=== PATIENT | female | born 1995 | race Caucasian/White ===

== ENCOUNTER 2017-02-10 17:26 | Emergency (ER) | payer BC ==
--- NOTE | 2017-02-10 19:18 | ED NURSING NOTES ---
Clinical Report - Nurses [facility] [address] [place] [address] 02/10/2017 17:28 Patient: HARRISON ZARATE TRIAGE Triage time 17:35. Chief Complaint: PAINFUL URINATION. --17:40 Sheriff Garza R.N. 17:35 02/10/17. BP: 129/71. HR: 96. RR: 18. O2 saturation: 97%. Temp: 98.1 F. Pain level now: 02/13. --17:40 Sheriff Garza R.N. Weight: 79.3 kg stated. Height/Length: 61 inches Per Patient. BMI: 33. --17:39 Sheriff Garza R.N. Medications None. --17:36 Sheriff Garza R.N. Allergies Sulfa Antibiotics. --17:36 Sheriff Garza R.N. History Arrived by private vehicle. Historian: patient. Onset. (1 weeks). ( Noted blood clots in urine twice today.). SURGERY HX: No history of previous surgery. SOCIAL HX: Smoker- current status unknown (Vape). Occasional alcohol use; consumes beer occasionally. History of drug use: marijuana. FALL RISK ASSESSMENT: Fall risk assessment completed. No fall risk identified. NUTRITIONAL RISK ASSESSMENT: The nutritional risk assessment revealed no deficiencies. FUNCTIONAL ASSESSMENT: Functional assessment: no impairments noted. LEARNING NEEDS ASSESSMENT: The learning needs assessment revealed no barriers. SKIN INTEGRITY ASSESSMENT: Skin integrity risk assessment completed. No skin integrity risk identified. --17:40 Sheriff Garza R.N. PROBLEMS: Kidney Infection. Lumbar Strain. UTI - Urinary Tract Infection. LNMP - Last Normal Menstrual Period. Immunizations. --17:39 Sheriff Garza R.N. PHYSICAL ASSESSMENT Ambulatory to room. GENERAL / NEURO / PSYCH: Alert. Oriented X 4. Appears in no acute distress. HEENT: Mucous membranes are pink. RESPIRATORY: Respirations not labored. CVS: Capillary refill less than 2 seconds. SKIN: Skin is warm and dry. --17:41 Sheriff Garza R.N. NURSING PROGRESS NOTES Head of bed elevated. Patient ID band checked for patient name and birthdate: patient confirmed. Instructions provided to collect clean catch urine. Clean catch urine collected with return of yellow-colored urine; sample sent to lab. Specimen labeled in the presence of the patient. Two patient identifiers checked. Call light placed in reach. Side rails up x 2. Bed placed in lowest position. Brakes of bed on. --17:41 Sheriff Garza R.N. DISPOSITION / DISCHARGE Condition at departure: stable. No learning barriers present. Discharge instructions provided and reviewed with the patient. Reviewed medication(s) side effects, precautions, dosing and course information. Prescription(s) given to the patient. Patient verbalized understanding. Written instructions provided in Dutch. The patient was discharged by the physician restaurant assistant manager. She was discharged home and accompanied by family. She left the Emergency Department ambulatory and via private vehicle. Family member driving. --19:24 Sheriff Garza R.N. Locked/Released at 02/10/2017 19:25 by Sheriff Garza R.N.
--- NOTE | 2017-02-10 19:18 | ED CLINICAL REPORT ---
Clinical Report - Physicians/Mid Levels [facility] [address] [place] [address] 02/10/2017 17:28 Patient: HARRISON ZARATE Time Seen: 17:34; initial patient contact, initial documentation, patient care assumed. Arrived- By private vehicle. Historian- patient. HISTORY OF PRESENT ILLNESS Chief Complaint: DYSURIA. hematuria. This started about 1 weeks ago and still present. The symptoms are described as moderate. Modifying factors- worsened by urination. Not relieved by anything. No abdominal pain, pelvic pain, vaginal pain, low back pain or flank pain. No missed period(s), irregular periods, abnormal bleeding, vaginal discharge or urinary frequency. No urgency of urination. The patient has had pain with urination. The patient has had mild hematuria. Sexually active. Does not use control measures. Denies current . Similar symptoms previously: None. Recent medical care: Not recently seen/assessed. REVIEW OF SYSTEMS No nausea, vomiting, diarrhea, fever or difficulty breathing. No chest pain. All systems otherwise negative, except as recorded above. PAST HISTORY See nurses notes. ( PROBLEMS: Kidney Infection. Lumbar Strain. UTI - Urinary Tract Infection. LNMP - Last Normal Menstrual Period. Immunizations. --17:39 Sheriff Kayla RRoc.). SOCIAL HISTORY Smoker- current status unknown (electronic cigarrette). No alcohol use or drug use. No recent travel. Is a local resident. FAMILY HISTORY Negative. ADDITIONAL NOTES The nursing notes have been reviewed with agreement regarding the chief complaint, HPI, ROS, PMH and patient medications and allergies. PHYSICAL EXAM Vital Signs: 02/10/2017 17:35 BP: 129/71. HR: 96. RR: 18. O2 saturation: 97%. Temp: 98.1 F. Pain level now: 6/10. Have been reviewed as normal and appear to be correct. Appearance: Alert. Oriented X3. No acute distress. HEENT: Normal external inspection. ENT: Pharynx normal. Neck: Neck supple. CVS: Heart sounds normal. Respiratory: No respiratory distress. Breath sounds normal. Chest nontender. Abdomen: Soft and nontender. Bowel sounds normal. No organomegaly. No mass. Back: Normal external inspection. Skin: Skin warm and dry. Normal skin color. No rash. Normal skin turgor. Extremities: Extremities nontender. No lower extremity edema. Neuro: Oriented X 3. Mood/affect normal. No motor deficit. No sensory deficit. LABS, X-RAYS, AND EKG Laboratory Tests: UA-Culture if indicated: (LESLI: 02/10/2017 17:35) ( MsgRcvd 02/10/2017 18:59) Final results Test Result Flag Units (Reference) URINE COLOR YELLOW URINE APPEARANCE CLEAR URINE GLUCOSE NEGATIVE (NEGATIVE) URINE BILIRUBIN NEGATIVE (NEGATIVE) URINE KETONE NEGATIVE (NEGATIVE) URINE SPECIFIC GRAVITY <= 1.005 L (1.010-1.030) URINE PH 6.0 (5.0-8.0) URINE PROTEIN NEGATIVE (NEGATIVE) URINE UROBILINOGEN 1.0 EU/dL (0.2-1.0) URINE NITRITE POSITIVE (NEGATIVE) URINE BLOOD 1+ (NEGATIVE) URINE LEUK ESTERASE POSITIVE (NEGATIVE) URINE RBC 1-3 rbc/hpf (0-1) URINE WBC 15-25 wbc/hpf (0-1) URINE EPITHELIAL CELLS 1-3 EPI/hpf (0-5) URINE BACTERIA FEW (1+) (NONE SEEN) URINE COMMENT CULTURE INDICATED URINE CULTURES ARE SET-UP BASED ON THE FOLLOWING CRITERIA:POSITIVE NITRITEPOSITIVE LEUKOCYTE ESTERASEGREATER THAN 10 WHITE BLOOD CELLSMODERATE (2+) OR GREATER BACTERIA . PROGRESS AND PROCEDURES Patient counseled in person regarding the patient's stable condition, test results and diagnosis. 19:15. Differential Diagnosis: Other possible considerations: uti, cystitis, pyelo, kidney stone. Above considerations are based on history, physical exam, reassessment and laboratory data. Differential diagnosis was discussed with patient. Disposition: Discharged home in good and unchanged condition (19:18). Condition: good and stable. CLINICAL IMPRESSION Acute urinary tract infection with cystitis and hematuria. No pyelonephritis. Not associated with indwelling catheter or obstruction. INSTRUCTIONS Drink plenty of fluids until better. Warnings: GENERAL WARNINGS: Return or contact your physician immediately if your condition worsens or changes unexpectedly, if not improving as expected, or if other problems arise. Specifically return if problem worsens. Prescription Medications: Cipro 500 mg: take 1 tab orally every 12 hours for 7 days. Dispense fourteen (14). No refills. Substitution is permissible. Follow-up: Follow up with your doctor in about three days even if well. Call for an appointment. Summary of care provided to patient. Understanding of the discharge instructions verbalized by patient. (Electronically signed by Coty Lee A.R.N.P. 02/10/2017 19:54)
--- NOTE | 2017-02-10 19:18 | ED ORDER SUMMARY ---
..... Patient: HARRISON ZARATE OrderSheet [facility] VisitID: [id number] [address] [place] [address] 21y, F Registration Date/Time: 02/10/2017 ORDER SHEET Weight: 79.3 kg (stated) Allergies: Sulfa Antibiotics GENERAL ORDERS: UA-Culture if indicated Urgent (18:32 02/10/2017 Varsha A.R.N.P.) (18:36 Yisel R.N.) MEDICATION ORDERS: IV FLUIDS: ORDER SHEET NOTES: [Electronically signed by Sheriff Chau Garza (19:25 02/10/2017)] [Electronically signed by Coty LeeR.N.PEder (19:54 02/10/2017)] [Electronically locked/signed by Sheriff Chau Garza (19:25 02/10/2017)]
--- NOTE | 2017-02-10 19:18 | ED NURSING NOTES ---
Clinical Report - Nurses [facility] [address] [place] [address] 02/10/2017 17:28 Patient: HARRISON ZARATE TRIAGE Triage time 17:35. Chief Complaint: PAINFUL URINATION. --17:40 Sheriff Garza R.N. 17:35 02/10/17. BP: 129/71. HR: 96. RR: 18. O2 saturation: 97%. Temp: 98.1 F. Pain level now: 02/13. --17:40 Sheriff Garza R.N. Weight: 79.3 kg stated. Height/Length: 61 inches Per Patient. BMI: 33. --17:39 Sheriff Garza R.N. Medications None. --17:36 Sheriff Garza R.N. Allergies Sulfa Antibiotics. --17:36 Sheriff Garza R.N. History Arrived by private vehicle. Historian: patient. Onset. (1 weeks). ( Noted blood clots in urine twice today.). SURGERY HX: No history of previous surgery. SOCIAL HX: Smoker- current status unknown (Vape). Occasional alcohol use; consumes beer occasionally. History of drug use: marijuana. FALL RISK ASSESSMENT: Fall risk assessment completed. No fall risk identified. NUTRITIONAL RISK ASSESSMENT: The nutritional risk assessment revealed no deficiencies. FUNCTIONAL ASSESSMENT: Functional assessment: no impairments noted. LEARNING NEEDS ASSESSMENT: The learning needs assessment revealed no barriers. SKIN INTEGRITY ASSESSMENT: Skin integrity risk assessment completed. No skin integrity risk identified. --17:40 Sheriff Garza R.N. PROBLEMS: Kidney Infection. Lumbar Strain. UTI - Urinary Tract Infection. LNMP - Last Normal Menstrual Period. Immunizations. --17:39 Sheriff Garza R.N. PHYSICAL ASSESSMENT Ambulatory to room. GENERAL / NEURO / PSYCH: Alert. Oriented X 4. Appears in no acute distress. HEENT: Mucous membranes are pink. RESPIRATORY: Respirations not labored. CVS: Capillary refill less than 2 seconds. SKIN: Skin is warm and dry. --17:41 Sheriff Garza R.N. NURSING PROGRESS NOTES Head of bed elevated. Patient ID band checked for patient name and birthdate: patient confirmed. Instructions provided to collect clean catch urine. Clean catch urine collected with return of yellow-colored urine; sample sent to lab. Specimen labeled in the presence of the patient. Two patient identifiers checked. Call light placed in reach. Side rails up x 2. Bed placed in lowest position. Brakes of bed on. --17:41 Sheriff Garza R.N. DISPOSITION / DISCHARGE Condition at departure: stable. No learning barriers present. Discharge instructions provided and reviewed with the patient. Reviewed medication(s) side effects, precautions, dosing and course information. Prescription(s) given to the patient. Patient verbalized understanding. Written instructions provided in Lithuanian. The patient was discharged by the physician assistant golf course superintendent. She was discharged home and accompanied by family. She left the Emergency Department ambulatory and via private vehicle. Family member driving. --19:24 Sheriff Garza R.N. Locked/Released at 02/10/2017 19:25 by Sheriff Garza R.N.
--- NOTE | 2017-02-10 19:18 | ED ORDER SUMMARY ---
..... Patient: HARRISON ZARATE OrderSheet [facility] VisitID: [id number] [address] [place] [address] 21y, F Registration Date/Time: 02/10/2017 ORDER SHEET Weight: 79.3 kg (stated) Allergies: Sulfa Antibiotics GENERAL ORDERS: UA-Culture if indicated Urgent (18:32 02/10/2017 Varsha A.R.N.P.) (18:36 Yisel R.N.) MEDICATION ORDERS: IV FLUIDS: ORDER SHEET NOTES: [Electronically signed by Sheriff Chau Garza (19:25 02/10/2017)] [Electronically signed by Coty LeeR.N.PEder (19:54 02/10/2017)] [Electronically locked/signed by Sheriff Chau Garza (19:25 02/10/2017)]
--- NOTE | 2017-02-10 19:54 | ED MAR SUMMARY ---
..... Medication Administration Record [facility] [address] [place], [place] [id number] Patient: HARRISON ZARATE Visit ID: [id number] 21y, F Weight: 79.3 kg Height/Length: 61 in BMI: 33 ALLERGIES: Sulfa Antibiotics
--- NOTE | 2017-02-10 19:54 | ED DISCHARGE INSTRUCTIONS ---
Patient: HARRISON ZARATE General Instructions [facility] VisitID: [id number] [place] [address] 21y, F Registration Date/Time: 02/10/2017 Acute urinary tract infection with cystitis and hematuria. No pyelonephritis. Not associated with indwelling catheter or obstruction. INSTRUCTIONS Drink plenty of fluids until better. Warnings: GENERAL WARNINGS: Return or contact your physician immediately if your condition worsens or changes unexpectedly, if not improving as expected, or if other problems arise. Specifically return if problem worsens. Prescription Medications: Cipro 500 mg: take 1 tab orally every 12 hours for 7 days. Dispense fourteen (14). No refills. Substitution is permissible. Follow-up: Follow up with your doctor in about three days even if well. Call for an appointment. Summary of care provided to patient. Understanding of the discharge instructions verbalized by patient. ADDITIONAL INFORMATION Bladder Infection,Female (Adult) A bladder infection ("cystitis" or "UTI") usually causes a constant urge to urinate and a burning when passing urine. Urine may be cloudy, smelly or dark. There may be pain in the lower abdomen. A bladder infection occurs when bacteria from the vaginal area enter the bladder opening (urethra). This can occur from sexual intercourse, wearing tight clothing, dehydration and other factors. Home Care: Drink lots of fluids (at least 6-8 glasses a day, unless you must restrict fluids for other medical reasons). This will force the medicine into your urinary system and flush the bacteria out of your body. Avoid sexual intercourse until your symptoms are gone. Avoid caffeine, alcohol and spicy foods. These can irritate the bladder. A bladder infection is treated with antibiotics. You may also be given Pyridium (generic = phenazopyridine) to reduce the burning sensation. This medicine will cause your urine to become a bright orange color. The orange urine may stain clothing. You may wear a pad or panty-liner to protect clothing. Preventing Future Infections: Always wipe from front to back after a bowel movement. Keep the genital area clean and dry. Drink plenty of fluids each day to avoid dehydration. Both sexual partners should wash before intercourse. Urinate right after intercourse to flush out the bladder. Wear cotton underwear and cotton-lined panty hose; avoid tight-fitting pants. If you are on control pills and are having frequent bladder infections, discuss with your doctor. Follow Up: Return to this facility or see your doctor if ALL symptoms are not gone after three days of treatment. Get Prompt Medical Attention if any of the following occur: Fever of 100.4F (38C) or higher, or as directed by your healthcare provider No improvement by the third day of treatment Increasing back or abdominal pain Repeated vomiting; unable to keep medicine down Weakness, dizziness or fainting Vaginal discharge Pain, redness or swelling in the labia (outer vaginal area) Blood In The Urine Blood in the urine ("hematuria") has many possible causes. If it occurs after an injury (such as a car accident or fall), it is most often a sign of bruising to the kidney or bladder. Common medical causes of blood in the urine include urinary tract infection, kidney stone, inflammation, tumors, or certain other diseases of the kidney or bladder. Menstruation can cause blood to appear in the urine sample, although it is not coming from the urinary tract. If only a trace amount of blood is present, it will show up on the urine test, even though the urine may be yellow and not pink or red. This may occur with any of the above conditions, as well as heavy exercise or high fever. In this case, your doctor may want to repeat the urine test on another day. This will show if the blood is still present. If so, then other tests can be done to find out the cause. Home Care: If your urine does not appear bloody (pink, brown or red) then you do not need to restrict your activity in any way. If you can see blood in your urine, rest and avoid heavy exertion until your next exam. Do not use aspirin or anti-inflammatory medicine like ibuprofen (Motrin, Advil) or naproxen (Naprosyn, Aleve). These thin the blood and may increase bleeding. Follow Up with your doctor or as advised by our staff. If you were injured and had blood in your urine, you should have a repeat urine test in 1-2 days. Contact your doctor or return to this facility for this test. [NOTE: A radiologist will review any X-rays that were taken. We will notify you of any new findings that may affect your care.] Get Prompt Medical Attention if any of the following occur: Bright red blood or blood clots in the urine (if a new symptom) Weakness, dizziness or fainting New groin, abdominal or back pain Fever of 100.4F (38C) or higher, or as directed by your healthcare provider Repeated vomiting Bleeding from nose, gums or easy bruising Ciprofloxacin Hydrochloride Oral tablet What is this medicine? CIPROFLOXACIN (sip bryan FLOX a sin) is a quinolone antibiotic. It is used to treat certain kinds of bacterial infections. It will not work for colds, flu, or other viral infections. How should I use this medicine? Take this medicine by mouth with a glass of water. Follow the directions on the prescription label. Take your medicine at regular intervals. Do not take your medicine more often than directed. Take all of your medicine as directed even if you think your are better. Do not skip doses or stop your medicine early. You can take this medicine with food or on an empty stomach. It can be taken with a meal that contains dairy or calcium, but do not take it alone with a dairy product, like milk or yogurt or calcium-fortified juice. A special MedGuide will be given to you by the pharmacist with each prescription and refill. Be sure to read this information carefully each time. Talk to your senior project accountant regarding the use of this medicine in children. Special care may be needed. What side effects may I notice from receiving this medicine? Side effects that you should report to your doctor or health director of career resources as soon as possible: - allergic reactions like skin rash, itching or hives, swelling of the face, lips, or tongue - breathing problems - confusion, nightmares or hallucinations - feeling faint or lightheaded, falls - irregular heartbeat - joint, muscle or tendon pain or swelling - pain or trouble passing urine -persistent headache with or without blurred vision - redness, blistering, peeling or loosening of the skin, including inside the mouth - seizure - unusual pain, numbness, tingling, or weakness Side effects that usually do not require medical attention (report to your doctor or health director of career resources if they continue or are bothersome): - diarrhea - nausea or stomach upset - white patches or sores in the mouth What may interact with this medicine? Do not take this medicine with any of the following medications: cisapride droperidol terfenadine tizanidine This medicine may also interact with the following medications: antacids caffeine cyclosporin didanosine (ddI) buffered tablets or powder medicines for diabetes medicines for inflammation like ibuprofen, naproxen methotrexate multivitamins omeprazole phenytoin probenecid sucralfate theophylline warfarin What if I miss a dose? If you miss a dose, take it as soon as you can. If it is almost time for your next dose, take only that dose. Do not take double or extra doses. Where should I keep my medicine? Keep out of the reach of children. Store at room temperature below 30 degrees C (86 degrees F). Keep container tightly closed. Throw away any unused medicine after the expiration date. What should I tell my health care provider before I take this medicine? They need to know if you have any of these conditions: -bone problems -cerebral disease -joint problems -irregular heartbeat -kidney disease -liver disease -myasthenia gravis -seizure disorder -tendon problems -an unusual or allergic reaction to ciprofloxacin, other antibiotics or medicines, foods, dyes, or preservatives - or trying to get -breast-feeding What should I watch for while using this medicine? Tell your doctor or health director of career resources if your symptoms do not improve. Do not treat diarrhea with over the counter products. Contact your doctor if you have diarrhea that lasts more than 2 days or if it is severe and watery. You may get drowsy or dizzy. Do not drive, use machinery, or do anything that needs mental alertness until you know how this medicine affects you. Do not stand or sit up quickly, especially if you are an older patient. This reduces the risk of dizzy or fainting spells. This medicine can make you more sensitive to the sun. Keep out of the sun. If you cannot avoid being in the sun, wear protective clothing and use sunscreen. Do not use sun lamps or tanning beds/booths. Avoid antacids, aluminum, calcium, iron, magnesium, and zinc products for 6 hours before and 2 hours after taking a dose of this medicine. You have been given the following additional information: Bladder Infection, Female (Adult) Hematuria Ciprofloxacin Hydrochloride Oral tablet (Electronically signed by Coty Lee A.R.N.P. 02/10/2017 19:54)
--- NOTE | 2017-02-10 19:54 | ED MED RECONCILIATION SUMMARY ---
Patient: HARRISON ZARATE Medication Reconciliation Report [facility] VisitID: [id number] [address] [place] [address] 21y, F Registration Date/Time: 02/10/2017 Weight: 79.3 kg Height/Length: 61 in. BMI: 33.0 ALLERGIES: Sulfa Antibiotics The patient's Home Medications are listed below: NONE. The source(s) of the original Home Medication information: Not obtained. The following Medications were given to the patient in the Emergency Department: None. The following Medications were prescribed to the patient: Cipro 500 mg: take 1 tab orally every 12 hours for 7 days. Dispense fourteen (14). No refills. Substitution is permissible. -- Coty Lee A.R.N.P.
--- NOTE | 2017-02-10 19:54 | ED MED RECONCILIATION SUMMARY ---
Patient: HARRISON ZARATE Medication Reconciliation Report [facility] VisitID: [id number] [address] [place] [address] 21y, F Registration Date/Time: 02/10/2017 Weight: 79.3 kg Height/Length: 61 in. BMI: 33.0 ALLERGIES: Sulfa Antibiotics The patient's Home Medications are listed below: NONE. The source(s) of the original Home Medication information: Not obtained. The following Medications were given to the patient in the Emergency Department: None. The following Medications were prescribed to the patient: Cipro 500 mg: take 1 tab orally every 12 hours for 7 days. Dispense fourteen (14). No refills. Substitution is permissible. -- Coty Lee A.R.N.P.
--- NOTE | 2017-02-10 19:54 | ED MAR SUMMARY ---
..... Medication Administration Record [facility] [address] [place], [place] [id number] Patient: HARRISON ZARATE Visit ID: [id number] 21y, F Weight: 79.3 kg Height/Length: 61 in BMI: 33 ALLERGIES: Sulfa Antibiotics
== END 2017-02-10 19:24 | disposition home or self-care (01) ==
LOC: ED SRH 17:26
DX: N30.01 Acute cystitis with hematuria (principal); Z88.1 Allergy status to other antibiotic agents
CPT/HCPCS: 90004; 90148; 90469